=== PATIENT | male | born 1970 | race Caucasian/White ===

== ENCOUNTER 2017-01-19 11:36 | Inpatient (IN) | payer SELFPAY ==
[2017-01-19] MEDS ORDERED: VANCOMYCIN HCL INJ 1000 MG VIAL IV ONE (13:14)
--- NOTE | 2017-01-19 13:18 | ER Document Report ---
ED Medical Screen (RME) - General Chief Complaint: Abscess Stated Complaint: POSSIBLE INSECT BITE Time Seen by Provider: 01/19/17 13:08 Mode of Arrival: Ambulatory Information source: Patient TRAVEL OUTSIDE OF THE [place] IN LAST 30 DAYS: No - HPI Onset: Other - 10 days Quality of pain: Dull Severity: Moderate Associated Symptoms: Fever Exacerbated by: Denies Relieved by: Denies Notes: 01/19/17 13:15 Patient is a 46-year-old male who sustained an insect bite to the dorsal aspect of his right hand approximately 10 days ago. Patient was self-medicating with clindamycin for this. Patient ran out after 4 day course. Patient presents with increased redness and swelling to the right hand all the way up to the right elbow. Subjective fevers. No other injuries or complaints. - Related Data Smoking: Non-smoker Allergies/Adverse Reactions: lisinopril Allergy (Verified 01/19/17 11:53) Past Medical History - General Information source: Patient - Social History Chew tobacco use (# tins/day): No Frequency of alcohol use: None Drug Abuse: None Renal/ Medical History: Denies: Hx Peritoneal Dialysis - Immunizations Hx Diphtheria, Pertussis, Tetanus Vaccination: Yes Review of Systems - Review of Systems Constitutional: Fever Musculoskeletal: Other - Right hand, wrist, forearm swelling and erythema Physical Exam - Vital signs Vitals: Temp Pulse Resp BP Pulse Ox 98.7 F 118 H 18 156/93 H 96 01/19/17 11:52 01/19/17 11:52 01/19/17 11:52 01/19/17 11:52 01/19/17 11:52 Interpretation: Normal, Tachycardic - General General appearance: Appears well, Alert - HEENT Head: Normocephalic, Atraumatic Eyes: Normal Pupils: PERRL - Respiratory Respiratory status: No respiratory distress Chest status: Nontender Breath sounds: Normal Chest palpation: Normal - Cardiovascular Rhythm: Regular Heart sounds: Normal auscultation Murmur: No - Abdominal Inspection: Normal Distension: No distension Bowel sounds: Normal Tenderness: Nontender Organomegaly: No organomegaly - Extremities Forearm: Other - Significant swelling and erythema noted to the entire right forearm Hand: Other - Significant swelling and erythema noted to the right hand with small central puncture wound on the dorsal aspect Course - Re-evaluation Re-evalutation: 01/19/17 13:18 Patient presents with a severe cellulitis to the entire right forearm, wrist, hand due to possible insect bite 10 days ago. Patient will require imaging and laboratory studies. Patient will need admission for IV antibiotics. Patient will be moved to the back treatment area for further management and disposition. - Vital Signs Vital signs: Temp Pulse Resp BP Pulse Ox 98.7 F 118 H 18 156/93 H 96 01/19/17 11:52 01/19/17 11:52 01/19/17 11:52 01/19/17 11:52 01/19/17 11:52
[2017-01-19] MEDS ORDERED: MORPHINE SULFATE 10 MG/ML INJ IV ONE ×3 (14:12→16:11)
[2017-01-19] MEDS ORDERED: NORMAL SALINE 1000 ML 1,000 ML IV ONE (14:13)
[2017-01-19 14:24] LABS: ABSOLUTE BASOPHILS # (AUTO) 0.1 10^3/uL (0.0-0.2); ABSOLUTE LYMPHOCYTES (AUTO) 1.5 10^3/uL (0.5-4.7); ABSOLUTE MONOCYTES (AUTO) 1.8 10^3/uL (0.1-1.4); BASOPHILS % (AUTO) 0.5 % (0-2); EOSINOPHILS % (AUTO) 0.1 % (0-6); HEMATOCRIT 40.4 % (37.9-51.0); HEMOGLOBIN 13.2 g/dL (13.5-17.0); HGB HCT DIFFERENCE -0.8; LYMPHOCYTES % (AUTO) 9.9 % (13-45); MEAN CORPUSCULAR HEMOGLOBIN 28.9 pg (27.0-33.4); MEAN CORPUSCULAR HGB CONC 32.7 g/dL (32.0-36.0); MEAN CORPUSCULAR VOLUME 89 fl (80-97); MONOCYTES % (AUTO) 11.4 % (3-13); RED BLOOD COUNT 4.57 10^6/uL (4.35-5.55); RED CELL DISTRIBUTION WIDTH 13.3 % (11.5-14.0); SEGMENTED NEUTROPHILS % (AUTO) 78.1 % (42-78); WHITE BLOOD COUNT 15.4 10^3/uL (4.0-10.5)
[2017-01-19 14:36] LABS: ALANINE AMINOTRANSFERASE 80 U/L (21-72); ALBUMIN 3.6 g/dL (3.5-5.0); ALKALINE PHOSPHATASE 115 U/L (38-126); ANION GAP 14 (5-19); ASPARTATE AMINO TRANSFERASE 48 U/L (17-59); BILIRUBIN,DIRECT 0.5 mg/dL (0.0-0.4); BILIRUBIN,TOTAL 0.8 mg/dL (0.2-1.3); BLOOD UREA NITROGEN 13 mg/dL (7-20); CALCIUM 8.8 mg/dL (8.4-10.2); CARBON DIOXIDE 25 mmol/L (22-30); CHLORIDE 97 mmol/L (98-107); CREATININE RESULT 0.65 mg/dL (0.52-1.25); GLUCOSE 282 mg/dL (75-110); POTASSIUM 4.8 mmol/L (3.6-5.0); SODIUM 136.2 mmol/L (137-145); TOTAL PROTEIN 7.5 g/dL (6.3-8.2)
--- NOTE | 2017-01-19 16:30 | RADIOLOGY REPORT (SQ) ---
EXAM DESCRIPTION: CT RT UPPER EXTREMITY WITHOUT COMPLETED DATE/TIME: 01/19/2017 3:47 pm REASON FOR STUDY: right forearm cellulitis - r/o abscess COMPARISON: None. TECHNIQUE: Axial imaging performed through the right forearm with reformatted coronal and sagittal i maging windowed for bone and soft tissues. Images saved to PACS. 3D IMAGING: Were 3D images as MIP, SSD, or volume rendering performed at the work station? No. All CT scanners at this facility use dose modulation, iterative reconstruction, and/or weight based d osing when appropriate to reduce radiation dose to as low as reasonably achievable (ALARA). [facility]: Dose Right [facility]: CareDose [facility]: Dose Right [facility]: Teradose 4D [facility]: [employer] LIMITATIONS: None. RADIATION DOSE: Up-to-date CT equipment and radiation dose reduction techniques were employed. CTDIv ol: 2.6 mGy. DLP: 113 mGy-cm. mGy. FINDINGS: SOFT TISSUES: There is diffuse soft tissue edema this is circumferential. No focal absces s or fluid collection is identified on this non contrasted study. Edema extends from the forearm to the distal humerus. BONES: No acute fracture. No dislocation. MINERALIZATION: Normal. OTHER: No other significant finding. IMPRESSION: Diffuse soft tissue edema. No focal abscess. TECHNICAL DOCUMENTATION: JOB ID: [id number] Quality ID # [id number]: Final reports with documentation of one or more dose reduction techniques (e.g., Au tomated exposure control, adjustment of the mA and/or kV according to patient size, use of iterative reconstruction technique) 2010 [employer]- All Rights Reserved
--- NOTE | 2017-01-19 16:56 | ER Document Report ---
ED General - General Chief Complaint: Abscess Stated Complaint: POSSIBLE INSECT BITE Time Seen by Provider: 01/19/17 13:08 Mode of Arrival: Ambulatory Information source: Patient Notes: Patient is a 46-year-old male who presents to the ER today for a bug bite to the right hand that started approximately a week ago. He did not see anything bite him. He states that he tried to pop it and then pus started coming out. He then states that the redness and swelling, pain started spreading of his right arm and has gotten worse and worse every day. He tried to take a friend' s clindamycin for 4 days, but states that he ran out and did not help. He admits to fevers and chills. He admits to history of MRSA. TRAVEL OUTSIDE OF THE [place] IN LAST 30 DAYS: No - Related Data Allergies/Adverse Reactions: lisinopril Allergy (Verified 01/19/17 11:53) Home Medications: Current Home Medications No Home Medications 01/19/17 [History] Past Medical History - General Information source: Patient - Social History Smoking Status: Current Every Day Smoker Chew tobacco use (# tins/day): No Frequency of alcohol use: None Drug Abuse: None Family History: Reviewed & Not Pertinent Patient has suicidal ideation: No Patient has homicidal ideation: No Renal/ Medical History: Denies: Hx Peritoneal Dialysis - Immunizations Hx Diphtheria, Pertussis, Tetanus Vaccination: Yes Review of Systems - Review of Systems Constitutional: See HPI EENT: No symptoms reported Cardiovascular: No symptoms reported Respiratory: No symptoms reported Gastrointestinal: No symptoms reported Genitourinary: No symptoms reported Male Genitourinary: No symptoms reported Musculoskeletal: No symptoms reported Skin: See HPI Hematologic/Lymphatic: No symptoms reported Neurological/Psychological: No symptoms reported Physical Exam - Vital signs Vitals: Temp Pulse Resp BP Pulse Ox 98.7 F 118 H 18 156/93 H 96 01/19/17 11:52 01/19/17 11:52 01/19/17 11:52 01/19/17 11:52 01/19/17 11:52 - Notes Notes: PHYSICAL EXAMINATION: GENERAL: uncomfortable, but in no acute distress. HEAD: Atraumatic, normocephalic. EYES: Pupils equal round and reactive to light, extraocular movements intact, sclera anicteric, conjunctiva are normal. NECK: Normal range of motion, supple without lymphadenopathy LUNGS: CTAB and equal. No wheezes rales or rhonchi. HEART: Regular rate and rhythm without murmurs ABDOMEN: Soft, no tenderness. No guarding, no rebound BACK: no vertebral tenderness, normal ROM GI/: no CVA tenderness EXTREMITIES: Normal range of motion, no pitting edema. No cyanosis. NEUROLOGICAL: Cranial nerves grossly intact. Normal sensory/motor exams. PSYCH: Normal mood, normal affect. SKIN: Warm, Dry, normal turgor, erythmea to right forearm, indurated entire right forearm, tender to palpation, induration to dorsal right hand with purulent drainage from the center, streaking of erythema up right upper arm Course - Re-evaluation Re-evalutation: 01/19/17 16:55 Patient has a white count of 15.4, CT of the upper extremity just revealed soft tissue swelling. Patient started on IV fluids and IV vancomycin here with a history of MRSA. Dr. Cantu, hospitalist agreed to admit patient at this time. - Vital Signs Vital signs: Temp Pulse Resp BP Pulse Ox 100.1 F 91 16 129/58 H 94 01/20/17 07:59 01/20/17 07:59 01/20/17 07:59 01/20/17 07:59 01/20/17 07:59 - Laboratory Result Diagrams: 01/20/17 04:41 01/20/17 04:41 Laboratory results interpreted by me: 01/19/17 01/19/17 14:02 14:02 WBC 15.4 H Hgb 13.2 L Seg Neutrophils % 78.1 H Lymphocytes % 9.9 L Absolute Neutrophils 12.0 H Absolute Monocytes 1.8 H Sodium 136.2 L Chloride 97 L Glucose 282 H Direct Bilirubin 0.5 H ALT 80 H Discharge - Discharge Clinical Impression: Abscess of right hand, Right arm cellulitis Sepsis Qualifiers: Sepsis type: sepsis due to unspecified organism Qualified Code(s): A41.9 - Sepsis, unspecified organism Condition: Stable Disposition: ADMITTED INPATIENT Admitting Provider: Hospitalist Unit Admitted: Telemetry
[2017-01-19] MEDS ORDERED: ACETAMINOPHEN 325 MG TABLET PO ONE (17:01)
[2017-01-19] MEDS ORDERED: ACETAMINOPHEN 325 MG TABLET PO PRN (17:58)
[2017-01-19] MEDS ORDERED: NORMAL SALINE 1000 ML 1,000 ML IV PRN (17:58)
[2017-01-19] MEDS ORDERED: ERTAPENEM SODIUM INJ 1 GM VIAL IV SCH (18:00)
[2017-01-19] MEDS ORDERED: ONDANSETRON HCL INJ/PF 4 MG/2 ML SDV IV PRN (18:08)
--- NOTE | 2017-01-19 18:20 | PDOC H&P ---
History of Present Illness Admission Date/PCP: 01/19/17 17:25 Patient complains of: Right upper extremity pain and swelling History of Present Illness: [place] BONILLA is a 46 year old male, with history of MRSA skin infection in the past was bitten by an insect on the right hand approximately 10 days ago. Patient's report it was itchy and he started manipulating it. It started to develop a boil and the patient tried to squeeze the secretions out. It started to develop swelling and pain and eventual redness on the hand. There is no chills or fever at that time, patient to clindamycin which was given to him by his friend for 4-5 days. Patient ran out of the medication and initially thought it was getting better however he started to get swollen again and this time with some purulent drainage and open wound. There is now increasing redness on the forearm as well as the arm. Patient complains of tightness on the forearm and on the wrist but no increasing pain on the wrist or elbow. Patient is having difficulty flexing the extremity due to the tightness. Patient also started to develop subjective chills and fever. No sinus congestion or sore throat, no cough or colds. No dysuria urgency or frequency. No diarrhea. Patient went to the emergency room for evaluation. Vancomycin was started and the patient was referred for admission. Past Medical History Cardiac Medical History: Reports: Hypertension Past Surgical History Past Surgical History: Reports: Appendectomy, Other - Arthroscopic surgery of the knee Social History Information Source: Patient Smoking Status: Current Every Day Smoker Frequency of Alcohol Use: None Hx Recreational Drug Use: No Drugs: None Family History Family History: CAD, Malignancy - Lung cancer Parental Family History Reviewed: Yes Children Family History Reviewed: Yes Sibling(s) Family History Reviewed.: Yes Medication/Allergy Home Medications: No Home Medications 01/19/17 Allergies/Adverse Reactions: lisinopril Allergy (Verified 01/19/17 11:53) Review of Systems Constitutional: PRESENT: chills, fever(s). ABSENT: headache(s), weight gain, weight loss Eyes: ABSENT: visual disturbances Ears: ABSENT: hearing changes Nose, Mouth, and Throat: ABSENT: mouth pain, sore throat Cardiovascular: PRESENT: edema - Right upper extremity. ABSENT: chest pain, dyspnea on exertion, orthropnea, palpitations Respiratory: ABSENT: cough, hemoptysis Gastrointestinal: ABSENT: abdominal pain, coffee ground emesis, constipation, diarrhea, hematemesis, hematochezia, melena, nausea, vomiting Genitourinary: ABSENT: dysuria, hematuria Musculoskeletal: ABSENT: back pain, joint swelling Integumentary: PRESENT: pruritus - Right upper extremity, rash - Right upper extremity. ABSENT: wounds Neurological: ABSENT: abnormal gait, abnormal speech, confusion, dizziness, focal weakness, syncope Psychiatric: ABSENT: anxiety, depression, homidical ideation, suicidal ideation Endocrine: ABSENT: cold intolerance, heat intolerance, polydipsia, polyuria Hematologic/Lymphatic: ABSENT: easy bleeding, easy bruising Physical Exam Vital Signs: Temp Pulse Resp BP Pulse Ox 102.5 F H 118 H 18 156/93 H 96 01/19/17 17:00 01/19/17 11:52 01/19/17 11:52 01/19/17 11:52 01/19/17 11:52 General appearance: PRESENT: no acute distress, cooperative, obese Head exam: PRESENT: atraumatic, normocephalic Eye exam: PRESENT: conjunctiva pink, EOMI, PERRLA. ABSENT: scleral icterus Ear exam: PRESENT: normal external ear exam Mouth exam: PRESENT: moist, neck supple, tongue midline Throat exam: ABSENT: post pharyngeal erythema, tonsillar erythema Neck exam: ABSENT: carotid bruit, JVD, lymphadenopathy, thyromegaly Respiratory exam: PRESENT: clear to auscultation chloe, unlabored. ABSENT: rales , rhonchi, wheezes Cardiovascular exam: PRESENT: RRR, +S1, +S2. ABSENT: diastolic murmur, gallop, rubs, systolic murmur Pulses: PRESENT: normal dorsalis pedis pul Vascular exam: PRESENT: normal capillary refill GI/Abdominal exam: PRESENT: normal bowel sounds, soft. ABSENT: distended, guarding, mass, organolmegaly, rebound, tenderness Rectal exam: PRESENT: deferred Extremities exam: PRESENT: +1 edema - On the right hand forearm., other - Limited range of motion of the right upper extremity due to tightness of the skin. ABSENT: calf tenderness, clubbing, pedal edema Neurological exam: PRESENT: alert, awake, oriented to person, oriented to place , oriented to time, oriented to situation, CN II-XII grossly intact. ABSENT: motor sensory deficit Psychiatric exam: PRESENT: appropriate affect, normal mood. ABSENT: homicidal ideation, suicidal ideation Skin exam: PRESENT: dry, erythema - right hand and forearm. Some red streaks noted on the arm, warm. ABSENT: cyanosis, rash Results Impressions: Upper Extremity CT 01/19/17 13:13 IMPRESSION: Diffuse soft tissue edema. No focal abscess. Assessment & Plan - Diagnosis (1) Abscess of right hand Is this a current diagnosis for this admission?: Yes (2) Right arm cellulitis Is this a current diagnosis for this admission?: Yes (3) Hyperglycemia Is this a current diagnosis for this admission?: Yes (4) Essential hypertension Is this a current diagnosis for this admission?: Yes - Time Time Spent: 50 to 70 Minutes - Inpatient Certification Based on my medical assessment, after consideration of the patient's comorbidities, presenting symptoms, or acuity I expect that the services needed warrant INPATIENT care.: Yes I certify that my determination is in accordance with my understanding of Medicare's requirements for reasonable and necessary INPATIENT services [42 CFR 412.3e].: Yes Medical Necessity: Significant Comorbidiites Make Outpatient Treatment Too Risky , Need for Pain Control, Need for IV Antibiotics, Risk of Complication if Not Cared For in Hospital Post Hospital Care: D/C Disability Program Navigator Documentation - Plan Summary Plan Summary: The patient will be admitted to the medical floor. He will be gently hydrated. We will obtain blood cultures and begin intravenous antibiotics with vancomycin and Invanz. We will consult orthopedics for the abscess and possible drainage. We will culture the patient's drainage. DVT prophylaxis with Lovenox will be given. We will give morphine and oxycodone as needed for pain. Further testing depends on initial evaluation and per specialty recommendations outlined above.
[2017-01-19] MEDS: MORPHINE SULFATE 10 MG/ML INJ IV PRN (19:38)
[2017-01-19] MEDS: OXYCODONE HCL IR 5 MG TABLET PO PRN (22:23)
[2017-01-19] MEDS: VANCOMYCIN HCL 1,500 MG in DEXTROSE 5%-WATER 250 ML IV SCH (22:23)
[2017-01-20] MEDS: MORPHINE SULFATE 10 MG/ML INJ IV PRN ×6 (00:16→23:22)
[2017-01-20] MEDS: ERTAPENEM SODIUM 1 GM in NORMAL SALINE 50 ML IV SCH ×2 (00:18→22:45)
[2017-01-20] MEDS: OXYCODONE HCL IR 5 MG TABLET PO PRN ×4 (02:44→23:22)
[2017-01-20 04:59] LABS: ABSOLUTE BASOPHILS # (AUTO) 0.1 10^3/uL (0.0-0.2); ABSOLUTE EOSINOPHILS # (AUTO) 0.1 10^3/uL (0.0-0.6); ABSOLUTE LYMPHOCYTES (AUTO) 1.8 10^3/uL (0.5-4.7); ABSOLUTE MONOCYTES (AUTO) 1.5 10^3/uL (0.1-1.4); ABSOLUTE NEUT (AUTO) 10.2 10^3/uL (1.7-8.2); BASOPHILS % (AUTO) 0.4 % (0-2); EOSINOPHILS % (AUTO) 0.5 % (0-6); HEMATOCRIT 34.5 % (37.9-51.0); HEMOGLOBIN 11.3 g/dL (13.5-17.0); HGB HCT DIFFERENCE -0.6; LYMPHOCYTES % (AUTO) 13.4 % (13-45); MEAN CORPUSCULAR HGB CONC 32.8 g/dL (32.0-36.0); MEAN CORPUSCULAR VOLUME 88 fl (80-97); MONOCYTES % (AUTO) 10.7 % (3-13); RED BLOOD COUNT 3.91 10^6/uL (4.35-5.55); RED CELL DISTRIBUTION WIDTH 13.1 % (11.5-14.0); WHITE BLOOD COUNT 13.6 10^3/uL (4.0-10.5)
[2017-01-20 05:18] LABS: ANION GAP 10 (5-19); BLOOD UREA NITROGEN 12 mg/dL (7-20); CALCIUM 7.9 mg/dL (8.4-10.2); CARBON DIOXIDE 25 mmol/L (22-30); CHLORIDE 100 mmol/L (98-107); CREATININE RESULT 0.86 mg/dL (0.52-1.25); GLUCOSE 257 mg/dL (75-110); POTASSIUM 4.1 mmol/L (3.6-5.0); SODIUM 135.3 mmol/L (137-145)
[2017-01-20] MEDS: VANCOMYCIN HCL 1,500 MG in DEXTROSE 5%-WATER 250 ML IV SCH ×3 (06:39→22:46)
[2017-01-20] MEDS: LANSOPRAZOLE 30 MG TAB.RAP.DR PO SCH (06:40)
[2017-01-20] MEDS: DOCUSATE SODIUM 100 MG CAPSULE PO SCH ×2 (09:49→17:30)
[2017-01-20] MEDS: ENOXAPARIN SODIUM INJ 40 MG/0.4 ML DISP.SYRIN SUBCUT SCH (09:50)
[2017-01-20] MEDS ORDERED: VANCOMYCIN HCL INJ 1000 MG VIAL IV SCH (10:00)
[2017-01-20] MEDS ORDERED: NORMAL SALINE 1000 ML 1,000 ML IV PRN (10:24)
--- NOTE | 2017-01-20 10:25 | PDOC PROGRESS REPORT ---
Subjective Progress Note for:: 01/20/17 Subjective:: Denies chills or fever. No diarrhea. Pain on the extremity better. Redness slightly improved. No polyuria, polydypsia. No SOB/CP. Physical Exam Vital Signs: Temp Pulse Resp BP Pulse Ox 100.1 F 91 16 129/58 H 94 01/20/17 07:59 01/20/17 07:59 01/20/17 07:59 01/20/17 07:59 01/20/17 07:59 Intake & Output 01/19/17 01/20/17 01/21/17 06:59 06:59 06:59 Intake Total 410 Balance 410 Weight 95 kg General appearance: PRESENT: no acute distress, cooperative, obese Head exam: PRESENT: normocephalic Eye exam: PRESENT: conjunctiva pink, EOMI Mouth exam: PRESENT: moist Neck exam: ABSENT: JVD Respiratory exam: PRESENT: clear to auscultation chloe. ABSENT: rhonchi, wheezes Cardiovascular exam: PRESENT: RRR. ABSENT: gallop GI/Abdominal exam: PRESENT: hypoactive bowel sounds, soft. ABSENT: distended, tenderness Extremities exam: PRESENT: other - RUE edema same, redness slightly less. ABSENT: pedal edema Neurological exam: PRESENT: alert, awake, oriented to person, oriented to place , oriented to time, oriented to situation Skin exam: PRESENT: dry, warm. ABSENT: cyanosis Results Laboratory Results: 01/20/17 04:41 01/20/17 04:41 01/20/17 01/20/17 04:41 04:41 WBC 13.6 H RBC 3.91 L Hgb 11.3 L Hct 34.5 L MCV 88 MCH 29.0 MCHC 32.8 RDW 13.1 Plt Count 269 Seg Neutrophils % 75.0 Lymphocytes % 13.4 Monocytes % 10.7 Eosinophils % 0.5 Basophils % 0.4 Absolute Neutrophils 10.2 H Absolute Lymphocytes 1.8 Absolute Monocytes 1.5 H Absolute Eosinophils 0.1 Absolute Basophils 0.1 Sodium 135.3 L Potassium 4.1 Chloride 100 Carbon Dioxide 25 Anion Gap 10 BUN 12 Creatinine 0.86 Est GFR ( Amer) > 60 Est GFR (Non-Af Amer) > 60 Glucose 257 H Calcium 7.9 L Impressions: Upper Extremity CT 01/19/17 13:13 IMPRESSION: Diffuse soft tissue edema. No focal abscess. Assessment & Plan - Diagnosis (1) Abscess of right hand Is this a current diagnosis for this admission?: Yes (2) Right arm cellulitis Is this a current diagnosis for this admission?: Yes (3) Hyperglycemia Is this a current diagnosis for this admission?: Yes (4) Essential hypertension Is this a current diagnosis for this admission?: Yes - Time Time Spent with patient: 25-34 minutes - Plan Summary Plan Summary: Cont. current antibiotics. Follow culture. Consult hand/ortho surgery. Awaiting evaluation. IVF to [facility].
[2017-01-20] MEDS: NICOTINE 21 MG/24 HR PATCH.TD24 TD SCH (15:55)
[2017-01-20] MEDS ORDERED: LIDOCAINE 1% INJ-PF (10 MG/ML) 30 ML SDV INJ PRN (17:29)
[2017-01-20] MEDS ORDERED: HYDROMORPHONE HCL INJ/PF 2 MG/ML AMPULE ONE (20:38)
[2017-01-20] MEDS ORDERED: HYDROMORPHONE HCL INJ/PF 2 MG/ML AMPULE IV ONE ×2 (21:00→21:30)
[2017-01-20] MEDS ORDERED: DEXTROSE 50%-WATER 25 GM/50 ML DISP.SYRIN IV PRN ×2 (21:15)
[2017-01-20] MEDS ORDERED: GLUCAGON,HUMAN RECOMB 1 MG INJ SUBCUT PRN (21:15)
[2017-01-20] MEDS ORDERED: DEXTROSE 40% GEL 15 GM TUBE PO PRN ×2 (21:15)
[2017-01-20 22:19] LABS: CREATININE RESULT 0.77 mg/dL (0.52-1.25)
[2017-01-21] MEDS: OXYCODONE HCL IR 5 MG TABLET PO PRN ×4 (03:39→22:12)
[2017-01-21] MEDS: LANSOPRAZOLE 30 MG TAB.RAP.DR PO SCH (05:33)
[2017-01-21] MEDS: VANCOMYCIN HCL 1,500 MG in DEXTROSE 5%-WATER 250 ML IV SCH ×3 (05:33→23:33)
[2017-01-21] MEDS: MORPHINE SULFATE 10 MG/ML INJ IV PRN ×3 (05:34→20:34)
[2017-01-21] MEDS: ENOXAPARIN SODIUM INJ 40 MG/0.4 ML DISP.SYRIN SUBCUT SCH (09:03)
[2017-01-21] MEDS: DOCUSATE SODIUM 100 MG CAPSULE PO SCH ×2 (09:09→17:34)
--- NOTE | 2017-01-21 10:08 | PDOC PROGRESS REPORT ---
Subjective Progress Note for:: 01/21/17 Subjective:: Patient reports a lot of pus was drained out of his hand and forearm last night. Patient reports pain requiring Dilaudid at that time. Denies any diarrhea. No chills or fever, nausea or vomiting, no abdominal pain. Feeling better this morning. Physical Exam Vital Signs: Temp Pulse Resp BP Pulse Ox 99.0 F 85 16 125/63 96 01/21/17 09:33 01/21/17 09:33 01/21/17 09:33 01/21/17 09:33 01/21/17 09:33 Intake & Output 01/20/17 01/21/17 01/22/17 06:59 06:59 06:59 Intake Total 410 3348 Output Total 2225 Balance 410 1123 Weight 95 kg 94.2 kg General appearance: PRESENT: no acute distress, cooperative Head exam: PRESENT: normocephalic Eye exam: PRESENT: EOMI Mouth exam: PRESENT: moist, neck supple Neck exam: ABSENT: JVD Respiratory exam: PRESENT: clear to auscultation chloe, unlabored. ABSENT: rales , rhonchi, wheezes Cardiovascular exam: PRESENT: RRR. ABSENT: gallop GI/Abdominal exam: PRESENT: soft. ABSENT: distended Extremities exam: PRESENT: other - Upper extremity edema on the right is less. Redness is about the same.. ABSENT: pedal edema Neurological exam: PRESENT: alert, awake, oriented to situation Skin exam: PRESENT: dry, warm. ABSENT: cyanosis Results Laboratory Results: 01/20/17 04:41 01/20/17 21:44 01/20/17 21:44 Creatinine 0.77 Est GFR ( Amer) > 60 Est GFR (Non-Af Amer) > 60 01/20/17 00:22 Nasophary ([facility] Only) MRSA Surveillance Culture - Final NO MRSA RECOVERED Impressions: Upper Extremity CT 01/19/17 13:13 IMPRESSION: Diffuse soft tissue edema. No focal abscess. Assessment & Plan - Diagnosis (1) Abscess of right hand Is this a current diagnosis for this admission?: Yes (2) Right arm cellulitis Is this a current diagnosis for this admission?: Yes (3) Hyperglycemia Is this a current diagnosis for this admission?: Yes (4) Essential hypertension Is this a current diagnosis for this admission?: Yes - Time Time Spent with patient: 25-34 minutes - Plan Summary Plan Summary: Appreciate hand and limb surgery help in managing the case. Continue current antibiotics and pain management. Follow cultures. If patient continues to improve by this weekend might be able to be discharged.
[2017-01-21] MEDS: NICOTINE 21 MG/24 HR PATCH.TD24 TD SCH (13:53)
--- NOTE | 2017-01-21 18:31 | PDOC CONSULTATION ---
Consultation Consult Date: 01/20/17 Consult reason:: right hand/forearm abcess History of Present Illness Admission Date/PCP: 01/19/17 17:59 Patient complains of: Right forearm and hand pain History of Present Illness: 46-year-old gentleman who had a bug bite on his right dorsal hand and he eventually unroofed the abscess and started draining. Symptoms progressed and redness progressed to his forearm therefore patient went to the ER last night for evaluation. Patient states this happened and was going on for 9 days. Denies any previous infection or surgeries on the right hand or forearm. Complains of fevers and warmth. Denies any numbness or tingling or paresthesias. Pain is a 5 out of 5. He states the blood right now is been draining for several days. Past Medical History Cardiac Medical History: Reports: Hypertension Past Surgical History Past Surgical History: Reports: Appendectomy, Other - Arthroscopic surgery of the knee Social History Smoking Status: Current Every Day Smoker Frequency of Alcohol Use: Rare Hx Recreational Drug Use: Yes Drugs: Marijuana Hx Prescription Drug Abuse: No Family History Family History: Reviewed & Not Pertinent Parental Family History Reviewed: No Children Family History Reviewed: No Sibling(s) Family History Reviewed.: No Medication/Allergy Home Medications: No Home Medications 01/19/17 Allergies/Adverse Reactions: lisinopril Allergy (Verified 01/19/17 11:53) Review of Systems All systems: reviewed and no additional remarkable complaints except as stated Physical Exam Vital Signs: Temp Pulse Resp BP Pulse Ox 37.0 C 80 18 124/65 97 01/21/17 12:00 01/21/17 12:00 01/21/17 12:00 01/21/17 12:00 01/21/17 12:00 Intake & Output 01/20/17 01/21/17 01/22/17 06:59 06:59 06:59 Intake Total 410 3348 Output Total 2225 Balance 410 1123 Weight 95 kg 94.2 kg General appearance: PRESENT: well-developed, well-nourished Adult Front & Back Image: 1 - 1 cm draining wound over the dorsal aspect of the hand. He has full extension and flexion of the 5 digits in the right hand. Able to do full range of motion of the elbow as well. He has erythema on the whole dorsal aspect of the forearm as well with tenderness to palpation. Good sensation to light touch. Good radial pulse and capillary refill. Able to express purulence from that one open wound. Results Laboratory Results: 01/20/17 04:41 01/20/17 21:44 01/20/17 21:44 Creatinine 0.77 Est GFR ( Amer) > 60 Est GFR (Non-Af Amer) > 60 01/20/17 00:22 Nasophary ([facility] Only) MRSA Surveillance Culture - Final NO MRSA RECOVERED Impressions: Upper Extremity CT 01/19/17 13:13 IMPRESSION: Diffuse soft tissue edema. No focal abscess. Status: Image reviewed by me Assessment & Plan - Plan Summary Plan Summary: Plan is for vicki atkinson 46-year-old gentleman with left dorsal hand abscess extending to the forearm. The CT scan did not visualize any pus but on physical exam I was able to express pus from the forearm to the distal had excision so I then proceeded to actually used an incision and drainage tray and prepped and sterilized the forearm and did a separate 1 inch incision over the dorsal forearm. Through this incision I was able to then express copious amount of pus. Most of the pus was expressed from the distal antecubital fossa to the incision. I then used Advil I proceeded to pack it and then placed 4 x 4 dressing, ABD pad and then Kerlix. Recommend continued IV antibiotics. I believe the patient will require IV antibiotics until early next week. Will continue to monitor the Cultures.
--- NOTE | 2017-01-21 18:35 | PDOC PROGRESS REPORT ---
Subjective Progress Note for:: 01/21/17 Subjective:: Patient had improvement in pain. Physical Exam Vital Signs: Temp Pulse Resp BP Pulse Ox 37.0 C 80 18 124/65 97 01/21/17 12:00 01/21/17 12:00 01/21/17 12:00 01/21/17 12:00 01/21/17 12:00 Intake & Output 01/20/17 01/21/17 01/22/17 06:59 06:59 06:59 Intake Total 410 3348 Output Total 2225 Balance 410 1123 Weight 95 kg 94.2 kg Adult Front & Back Image: 1 - I was able to remove the iodoform packing from the right forearm incision and drain some more pus but this time is mixed with blood. Neurovascular exam is unchanged. Erythema is slightly improved but still some erythema on the distal third forearm. No drainage from the dorsal hand. Results Laboratory Results: 01/20/17 04:41 01/20/17 21:44 01/20/17 21:44 Creatinine 0.77 Est GFR ( Amer) > 60 Est GFR (Non-Af Amer) > 60 01/20/17 00:22 Nasophary ([facility] Only) MRSA Surveillance Culture - Final NO MRSA RECOVERED Impressions: Upper Extremity CT 01/19/17 13:13 IMPRESSION: Diffuse soft tissue edema. No focal abscess. Assessment & Plan - Plan Summary Plan Summary: 46-year-old with a right hand forearm abscess. I was able to express some more purulence of the which significantly improved from yesterday. At this point I will start with twice a day soaks and continue to monitor the patient with IV antibiotics over the weekend. Hopefully if he improves no further procedure needed. If her symptoms worsened and the patient will require formal I&D in the OR.
[2017-01-21] MEDS: ERTAPENEM SODIUM 1 GM in NORMAL SALINE 50 ML IV SCH (22:04)
[2017-01-22] MEDS: OXYCODONE HCL IR 5 MG TABLET PO PRN ×3 (02:36→14:59)
[2017-01-22] MEDS: LANSOPRAZOLE 30 MG TAB.RAP.DR PO SCH (05:55)
[2017-01-22] MEDS: VANCOMYCIN HCL 1,500 MG in DEXTROSE 5%-WATER 250 ML IV SCH ×3 (05:55→22:32)
[2017-01-22] MEDS: MORPHINE SULFATE 10 MG/ML INJ IV PRN ×4 (05:56→22:32)
--- NOTE | 2017-01-22 08:31 | PDOC PROGRESS REPORT ---
Subjective Progress Note for:: 01/22/17 Subjective:: Patient reports considerable improvement in right upper extremity cellulitis status post bedside I&D and intravenous antibiotics. Physical Exam Vital Signs: Temp Pulse Resp BP Pulse Ox 37.0 C 82 18 111/55 L 94 01/22/17 04:00 01/22/17 04:00 01/22/17 04:00 01/22/17 04:00 01/22/17 04:00 Intake & Output 01/21/17 01/22/17 01/23/17 06:59 06:59 06:59 Intake Total 3348 2927 Output Total 2225 1800 Balance 1123 1127 Weight 94.2 kg 94.2 kg Musculoskeletal exam: PRESENT: other - The distal aspect of the forearm continues to be erythematous, tense, and somewhat tender. There is only scant serous drainage from the dorsal hand wound. Approximately the erythema has retreated from a inclined that presumably demarcated the previous aspect of the cellulitis. Distal neurovascular examination is intact. Results Laboratory Results: 01/20/17 04:41 01/20/17 21:44 01/20/17 00:22 Nasophary ([facility] Only) MRSA Surveillance Culture - Final NO MRSA RECOVERED Impressions: Upper Extremity CT 01/19/17 13:13 IMPRESSION: Diffuse soft tissue edema. No focal abscess. Assessment & Plan - Diagnosis (1) Right arm cellulitis Is this a current diagnosis for this admission?: YesPlan: Is improving. At this point I do not see any clinical indication for for further surgical intervention. Plan will be for continued administration of antibiotics and a course of observation. - Time Time Spent with patient: 15-24 minutes Anticipated discharge: Home with Homehealth Within: Other
[2017-01-22] MEDS: DOCUSATE SODIUM 100 MG CAPSULE PO SCH ×2 (09:35→17:23)
[2017-01-22] MEDS: ENOXAPARIN SODIUM INJ 40 MG/0.4 ML DISP.SYRIN SUBCUT SCH (09:36)
--- NOTE | 2017-01-22 12:35 | PDOC PROGRESS REPORT ---
Subjective Progress Note for:: 01/22/17 Subjective:: Patient continues to improve. Swelling continues but less. Redness continue to improve as well. No fever or chills nor diarrhea. Patient able to move upper extremity now. Physical Exam Vital Signs: Temp Pulse Resp BP Pulse Ox 98.4 F 77 20 117/66 97 01/22/17 08:17 01/22/17 08:17 01/22/17 08:17 01/22/17 08:17 01/22/17 08:17 Intake & Output 01/21/17 01/22/17 01/23/17 06:59 06:59 06:59 Intake Total 3348 2927 Output Total 2225 1800 Balance 1123 1127 Weight 94.2 kg 94.2 kg General appearance: PRESENT: no acute distress, cooperative Head exam: PRESENT: normocephalic Eye exam: PRESENT: EOMI Mouth exam: PRESENT: moist, neck supple Respiratory exam: PRESENT: clear to auscultation chloe Cardiovascular exam: PRESENT: RRR Neurological exam: PRESENT: alert, awake, oriented to situation Skin exam: PRESENT: dry, warm, other - Foreign healing well on the right upper extremity. Redness is less. Edema is likewise less.. ABSENT: cyanosis Results Laboratory Results: 01/20/17 04:41 01/20/17 21:44 01/20/17 00:22 Nasophary ([facility] Only) MRSA Surveillance Culture - Final NO MRSA RECOVERED Impressions: Upper Extremity CT 01/19/17 13:13 IMPRESSION: Diffuse soft tissue edema. No focal abscess. Assessment & Plan - Diagnosis (1) Abscess of right hand Is this a current diagnosis for this admission?: Yes (2) Right arm cellulitis Is this a current diagnosis for this admission?: Yes (3) Hyperglycemia Is this a current diagnosis for this admission?: Yes (4) Essential hypertension Is this a current diagnosis for this admission?: Yes - Time Time Spent with patient: 15-24 minutes - Plan Summary Plan Summary: Continue current antibiotics. If the patient continues to improve possible discharge in the morning on oral antibiotics
[2017-01-22] MEDS: NICOTINE 21 MG/24 HR PATCH.TD24 TD SCH (13:54)
[2017-01-22] MEDS: ERTAPENEM SODIUM 1 GM in NORMAL SALINE 50 ML IV SCH (22:32)
[2017-01-23] MEDS: LANSOPRAZOLE 30 MG TAB.RAP.DR PO SCH (05:48)
[2017-01-23] MEDS: VANCOMYCIN HCL 1,500 MG in DEXTROSE 5%-WATER 250 ML IV SCH ×2 (05:48→14:26)
[2017-01-23] MEDS: OXYCODONE HCL IR 5 MG TABLET PO PRN ×2 (05:49→12:18)
[2017-01-23] MEDS: MORPHINE SULFATE 10 MG/ML INJ IV PRN (08:23)
[2017-01-23] MEDS: ENOXAPARIN SODIUM INJ 40 MG/0.4 ML DISP.SYRIN SUBCUT SCH (09:54)
[2017-01-23] MEDS: DOCUSATE SODIUM 100 MG CAPSULE PO SCH (09:56)
--- NOTE | 2017-01-23 13:57 | PDOC PROGRESS REPORT ---
Subjective Progress Note for:: 01/23/17 Subjective:: Patient notes considerable interim improvement Physical Exam Vital Signs: Temp Pulse Resp BP Pulse Ox 36.7 C 71 16 131/86 H 99 01/23/17 07:49 01/23/17 07:49 01/23/17 07:49 01/23/17 07:49 01/23/17 07:49 Intake & Output 01/22/17 01/23/17 01/24/17 06:59 06:59 06:59 Intake Total 2927 2060 840 Output Total 1800 1950 450 Balance 1127 110 390 Weight 94.2 kg 94.1 kg General appearance: PRESENT: no acute distress Respiratory exam: PRESENT: unlabored GI/Abdominal exam: PRESENT: soft Rectal exam: PRESENT: deferred Extremities exam: PRESENT: other - Erythema over the distal right forearm is almost completely resolved. There continues to be drainage from the dorsal wounds. Neurological exam: PRESENT: alert, awake, oriented to person, oriented to place , oriented to time, oriented to situation, CN II-XII grossly intact. ABSENT: motor sensory deficit Psychiatric exam: PRESENT: appropriate affect, normal mood. ABSENT: homicidal ideation, suicidal ideation Skin exam: PRESENT: dry, intact, warm. ABSENT: cyanosis, rash Results Laboratory Results: 01/20/17 04:41 01/20/17 21:44 Impressions: Upper Extremity CT 01/19/17 13:13 IMPRESSION: Diffuse soft tissue edema. No focal abscess. Assessment & Plan - Diagnosis (1) Right arm cellulitis Is this a current diagnosis for this admission?: YesPlan: Anticipate conversion to oral antibiotics and discharged home in the near future - Time Time Spent with patient: 15-24 minutes Anticipated discharge: Home Within: within 24 hours
[2017-01-23] MEDS: NICOTINE 21 MG/24 HR PATCH.TD24 TD SCH (14:27)
[2017-01-23 14:55] VITALS: BP 102/62
--- NOTE | 2017-01-23 15:35 | PDOC DISCHARGE SUMMARY ---
General - Admit/Disc Date/PCP Admission Date/Primary Care Provider: 01/19/17 17:59 Discharge Date: 01/23/17 - Discharge Diagnosis (1) Right arm cellulitis Is this a current diagnosis for this admission?: Yes (2) Abscess of right hand Is this a current diagnosis for this admission?: Yes (3) Diabetes mellitus type 2 in nonobese Is this a current diagnosis for this admission?: Yes (4) Hyperglycemia Is this a current diagnosis for this admission?: Yes (5) Essential hypertension Is this a current diagnosis for this admission?: Yes - Additional Information Discharge Diet: Other (Comments) - low salt, no concentrated sweets Discharge Activity: Activity As Tolerated, Balance Activity w/Rest Home Medications: Hydrocodone/Acetaminophen [Lorcet 5-325 mg Tablet] 1 each PO Q6H PRN #30 tablet 01/23/17 Metformin HCl [Metformin HCl ER] 750 mg PO BID #60 tab.sr.24h 01/23/17 Sulfamethoxazole/Trimethoprim [Bactrim Ds Tablet] 1 each PO BID #20 tablet 01/23 Additional Information: . Monitor BS daily and record, bring to next physician visit. Clean wound BID w / Hibiclense, cover w/ dry 4x4 and wrap w/ kerlix. Follow-up final wound culture report as out-patient w/ primary physician. 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 Patient's report it was itchy and he started manipulating it. It started to develop a boil and the patient tried to squeeze the secretions out. It started to develop swelling and pain and eventual redness on the hand. There is no chills or fever at that time, patient to clindamycin which was given to him by his friend for 4-5 days. Patient ran out of the medication and initially thought it was getting better however he started to get swollen again and this time with some purulent drainage and open wound. There is now increasing redness on the forearm as well as the arm. Patient complains of tightness on the forearm and on the wrist but no increasing pain on the wrist or elbow. Patient is having difficulty flexing the extremity due to the tightness. Patient also started to develop subjective chills and fever. No sinus congestion or sore throat, no cough or colds. No dysuria urgency or frequency. No diarrhea. Patient went to the emergency room for evaluation. Vancomycin was started and the patient was referred for admission. Hospital Course Hospital Course: The patient was admitted to the medical floor. The patient was started on broad -spectrum antibiotic with vancomycin and Invanz. Dr. Kirsty Wheat was consulted and eventually perform incision and drainage. Purulent materials were drained. Cultures resolved showed viridans Streptococcus but identity is pending according to the lab. Organism reportedly sensitive to antibiotics. Wound care was done with Hibiclens cleanse twice a day. The patient improved. Course was noted for hyperglycemia where her hemoglobin A1c was elevated and fasting blood sugar was likewise elevated. The patient was informed of the diagnosis of likely diabetes and to be started on metformin. Patient was educated about blood sugar monitoring and measurements. Patient educated about diabetic diet as well. Symptoms of hypoglycemia and hyperglycemia were also included. The rest of the hospital stays unremarkable. Physical Exam Vital Signs: Temp Pulse Resp BP Pulse Ox 98.4 F 90 12 102/62 95 01/23/17 11:30 01/23/17 11:30 01/23/17 11:30 01/23/17 11:30 01/23/17 11:30 Intake & Output 01/22/17 01/23/17 01/24/17 06:59 06:59 06:59 Intake Total 2927 2060 840 Output Total 1800 1950 450 Balance 1127 110 390 Weight 94.2 kg 94.1 kg General appearance: PRESENT: no acute distress, cooperative Eye exam: PRESENT: EOMI Mouth exam: PRESENT: moist, neck supple Neck exam: ABSENT: JVD Respiratory exam: PRESENT: clear to auscultation chloe Cardiovascular exam: PRESENT: RRR. ABSENT: gallop GI/Abdominal exam: PRESENT: soft. ABSENT: distended, tenderness Extremities exam: PRESENT: other - RUE edema and redness significantly improved. No purulent drainage.. ABSENT: pedal edema, +1 edema, +2 edema Neurological exam: PRESENT: alert, awake, oriented to person, oriented to place , oriented to time, oriented to situation Skin exam: PRESENT: dry, warm. ABSENT: cyanosis Results Laboratory Results: 01/20/17 04:41 01/20/17 21:44 Impressions: Upper Extremity CT 01/19/17 13:13 IMPRESSION: Diffuse soft tissue edema. No focal abscess. Qualifiers PATEINT BEING DISCHARGED WITH ANY OF THE FOLLOWING DIAGNOSIS?: No Plan Discharge Plan: Follow-up w/ primary care physician in 1 week. Follow-up w/ Dr. Kirsty Wheat in 1 to 2 weeks. Time Spent: Less than 30 Minutes
== END 2017-01-23 17:30 | disposition home or self-care (01) | DRG 603 ==
LOC: ER 11:36 → UNDOADMIN 17:25 → EH 17:25 → 4N 20:57
PROC: 0H9DXZZ Drainage of Right Lower Arm Skin, External Approach (ICD-10-PCS; principal; 2017-01-20)
DX: L03.113 Cellulitis of right upper limb (principal); L02.511 Cutaneous abscess of right hand; S60.561A Insect bite (nonvenomous) of right hand, initial encounter; B95.4 Other streptococcus as the cause of diseases classified elsewhere; I10 Essential (primary) hypertension; R73.9 Hyperglycemia, unspecified; F17.210 Nicotine dependence, cigarettes, uncomplicated; W57.XXXA Bitten or stung by nonvenomous insect and other nonvenomous arthropods, initial encounter; Y93.9 Activity, unspecified; Y92.9 Unspecified place or not applicable; Z86.14 Personal history of Methicillin resistant Staphylococcus aureus infection
CPT/HCPCS: 36415; 80048; 80053; 80202; 82565; 83036; 83605; 85025; 87040; 87070; 87077; 87205; 96365; 96366; 96375; 96376; 99285; J1170; J1335; J1650; J2270; J2405; J3370; J7030; J7060